=== PATIENT | male | born 1950 | race African-American/Black ===

== ENCOUNTER 2019-07-16 18:37 | Emergency (ER) | payer OTHER ==
[2019-07-16 18:52] VITALS: BP 122/78; PULSE 74; TEMP 98.9; BMI 24.4
--- NOTE | 2019-07-16 19:22 | PDOC ---
History of Present Illness - General Chief Complaint: Shortness of Breath Stated Complaint: DIFFICULTY BREATHING - History of Present Illness Initial Comments: The pt is a 69M w/ a history of supraglottic SCC s/p total laryngectomy, HLD, HD who presents for evaluation from [facility] for evaluation of a mucous plug. Pt states he requires suction. He also reports recent left conjuctivitis that is currently being treated. He denies chest pain, fevers, trouble breathing, or any other complaints. 07/16/19 19:38 Past History - Past Medical History Allergies/Adverse Reactions: Allergies Allergy/AdvReac Type Severity Reaction Status Date / Time No Known Allergies Allergy Verified 07/16/19 18:44 Cancer: Yes (Malignant neoplasm of Larynx) COPD: Yes Diabetes: Yes (NIDDM) HTN: Yes Hypercholesterolemia: Yes Psychiatric Problems: Yes (Bipolar) - Psycho Social/Smoking Cessation Hx Smoking History: Never smoked Hx Alcohol Use: No Drug/Substance Use Hx: No Review of Systems - Review of Systems Able to Perform ROS?: Yes Comments:: GENERAL/CONSTITUTIONAL: No fever or chills. No weakness HEAD, EYES, EARS, NOSE AND THROAT: No change in vision. No change in hearing CARDIOVASCULAR: No chest pain RESPIRATORY: Denies cough, hemoptysis GASTROINTESTINAL: No nausea, vomiting, diarrhea or constipation GENITOURINARY: No dysuria, frequency, or change in urination SKIN: No rash NEUROLOGIC: No headache, loss of consciousness ENDOCRINE: No increased thirst. No abnormal weight change HEMATOLOGIC/LYMPHATIC: No anemia, easy bleeding, or history of blood clots ALLERGIC/IMMUNOLOGIC: No hives or skin allergy 07/16/19 19:21 Is the patient limited Kazakh proficient: No *Physical Exam - Vital Signs Last Vital Signs Temp Pulse Resp BP Pulse Ox 98.9 F 74 20 122/78 88 L 07/16/19 18:44 07/16/19 18:44 07/16/19 18:44 07/16/19 18:44 07/16/19 18:44 - Physical Exam GENERAL: Awake, alert, and oriented to person/place/time, in no acute distress HEAD: No signs of trauma, normocephalic, atraumatic EYES: PERRLA, EOMI, sclera anicteric, conjunctiva clear ENT: Hearing grossly normal, nares patent; s/p tracheostomy, Moist mucosa LUNGS: No distress, speaks in full sentences, clear to auscultation bilaterally HEART: Regular rate and rhythm, normal S1 and S2, no murmurs appreciated, peripheral pulses normal and equal bilaterally ABDOMEN: Soft, nontender, normoactive bowel sounds. No guarding, no rebound EXTREMITIES: Normal inspection, Normal range of motion, no edema. No clubbing or cyanosis NEUROLOGICAL: Cranial nerves II through XII grossly intact. no focal sensorimotor deficits SKIN: Warm, Dry 07/16/19 19:21 Medical Decision Making - Medical Decision Making The pt is a 69M w/ a history of supraglottic SCC s/p total laryngectomy, HLD, HD who presents for evaluation from [facility] for evaluation of a mucous plug. ED Course Pt suctioned and reports feeling better Pt in no respiratory distress Pt denies any other complaints Attempted to contact [facility], only number listed ([phone]) with no answer/personnel to discuss patient with Transfer paperwork only lists 'difficult breathing' as reason for transfer Pt afebrile and non-toxic appearing, saturating 100% on RA s/p suctioning 07/16/19 19:42 Discharge - Discharge Information Problems reviewed: Yes Clinical Impression/Diagnosis: Tracheostomy in place, Mucus plugging of bronchi Condition: Improved Disposition: NURSING HOME FACILITY - Admission No - Follow up/Referral Referrals: Rex Soliz MD [Primary Care Provider] - - Patient Discharge Instructions Patient Printed Discharge Instructions: How to Take Care of a Tracheostomy Additional Instructions: You were seen in the Emergency Department for evaluation of a mucous plug. You were suctioned three times with improvement in symptoms. Review the handout provided at discharge. Follow up with your primary care provider within a week. Continue to take your medications as directed. Return to the Emergency Department if you develop fevers, chest pain, trouble breathing, worsening symptoms, or any new/concerning symptoms. - Post Discharge Activity
--- NOTE | 2019-07-16 19:25 | PDOC ---
Documentation entered by Ashely Ellington SCRIBE, acting as scribe for Mariaelena Haynes MD. Mariaelena Haynes MD: This documentation has been prepared by the Chandana levin Joy, SCRIBE, under my direction and personally reviewed by me in its entirety. I confirm that the documentation accurately reflects all work, treatment, procedures, and medical decision making performed by me. Attending Attestation - Resident Resident Name: Octavio Daly - ED Attending Attestation I have performed the following: I have examined & evaluated the patient, The case was reviewed & discussed with the resident, I agree w/resident's findings & plan, Exceptions are as noted - HPI HPI: 07/16/19 19:25 69-year-old male brought in by ambulance from [facility] for difficulty breathing. He does have a chronic trach in place. - Physicial Exam PE: 07/16/19 20:04 Alert slender 69-year-old male brought in by ambulance from residential facility for shortness of breath Head normocephalic atraumatic Neck intact tracheostomy, no erythema, no gross purulence from the site Neuro alert,moving all extremities 07/16/19 20:07 - Medical Decision Making 07/16/19 20:03 69-year-old male with a history of supraglottic squamous cell carcinoma who has a permanent trach I complained to staff that he felt short of breath in the afternoon Past medical history also includes diabetes hypertension and hyperlipidemia Patient is nodded yes when asked if his shortness of breath developed acutely in the afternoon he nodded yes The patient's trach was suctioned and after which he felt fine His pulse ox is one hundred percent on room air After numerous attempts were made to contact the staff at the facility ,we were able to contact someone and verify that their only concern was his shortness of breath and they did not have any other concerns Impression mucous plug Plan discharge back to [facility] 07/16/19 20:04 07/16/19 21:27
== END 2019-07-16 22:51 ==
LOC: JER 18:37
DX: T17.590A Other foreign object in bronchus causing asphyxiation, initial encounter (principal); C76.8 Malignant neoplasm of other specified ill-defined sites; Z43.0 Encounter for attention to tracheostomy; E78.5 Hyperlipidemia, unspecified; E11.9 Type 2 diabetes mellitus without complications; E78.00 Pure hypercholesterolemia, unspecified; F31.9 Bipolar disorder, unspecified; J44.9 Chronic obstructive pulmonary disease, unspecified
CPT/HCPCS: 99282-25